=== PATIENT | female | born 1970 | race Caucasian/White ===

== ENCOUNTER 2017-03-25 17:45 | Emergency (ER) | payer BC ==
[2017-03-25 18:12] VITALS: BP 131/78
--- NOTE | 2017-03-25 18:15 | UC ---
Eye Complaint HPI - HPI Summary HPI Summary: 46 y/o female w/ PMHX of bipolar disorder presents tot the urgent care c/o bilateral eye irritation for the past 3 days after she apply an eye cream for her wrinkles. She thinks she has applied too much and now caused her an allergic reaction. She has redness w/ swelling and discrete hives on both eyelid that itches. Pt denies eye pain, visual disturbance, eye discharge. fever , SOB, chest pain, N/V/D. Pt has not other complains - History of Current Complaint Chief Complaint: UCGeneralIllness Stated Complaint: EYE ISSUE Time Seen by Provider: 03/25/17 18:13 Hx Obtained From: Patient Hx Last Menstrual Period: 02/23/17 ?: No Onset/Duration: Gradual Onset, Lasting Days, Still Present Timing: Days Severity Initially: Mild Severity Currently: Moderate Pain Intensity: 0 Pain Scale Used: 0-10 Numeric Location of Injury: Eye Lid (lower), Eye Lid (upper), Periorbital Aggravating Factor(s): Other - touch Alleviating Factor(s): Eye Drops Associated Signs And Symptoms: Positive: Swelling. Negative: Photophobia, Drainage (Clear), Drainage (Purulent), Vision Impairment Bilateral, Vision Impairment Right, Vision Impairment Left, Fever - Risk Factors Penetrating Injury Risk Factor: Negative Acute Glaucoma Risk Factors: Negative Optic Artery Occlusion Risk Factors: Negative - Allergies/Home Medications Allergies/Adverse Reactions: Allergies Allergy/AdvReac Type Severity Reaction Status Date / Time No Known Allergies Allergy Verified 03/25/17 18:04 Home Medications: Home Medications Cariprazine HCl [Vraylar] 3 mg PO 03/25/17 [History Confirmed 03/25/17] PMH/Surg Hx/FS Hx/Imm Hx Previously Healthy: Yes Psychological History: Bipolar Disorder - Surgical History Surgical History: Yes Surgery Procedure, Year, and Place: umbilical hernia repair, 20 YRS AGO. L foot , 2015 - Family History Known Family History: Positive: None - Pt denies - Social History Occupation: Employed Full-time Lives: With Family Alcohol Use: Rare Alcohol Amount: 1-2 PER MONTH Substance Use Type: None Smoking Status (MU): Never Smoked Tobacco Amount Used/How Often: PACK A WEEK When Did the Patient Quit Smoking/Using Tobacco: 2000 - Immunization History Most Recent Influenza Vaccination: 2016 Most Recent Tetanus Shot: utd Most Recent Pneumonia Vaccination: NEVER Review of Systems Constitutional: Negative Skin: Negative Eyes: Other - B/L eyelid and periorbital rash w/ swelling ENT: Negative Respiratory: Negative Cardiovascular: Negative Gastrointestinal: Negative Genitourinary: Negative Motor: Negative Neurovascular: Negative Musculoskeletal: Negative Neurological: Negative Psychological: Negative All Other Systems Reviewed And Are Negative: Yes Physical Exam Triage Information Reviewed: Yes Appearance: Well-Appearing, No Pain Distress, Well-Nourished, Thin Vital Signs: Initial Vital Signs Temp 99.2 F 03/25/17 18:06 Pulse 83 03/25/17 18:06 Resp 16 03/25/17 18:06 BP 131/78 03/25/17 18:06 Pulse Ox 99 03/25/17 18:06 Vital Signs Reviewed: Yes Eyes: Positive: Conjunctiva Clear - B/L PERRLA, EOMI, fundi grossly normal. B/ L eyelid swollen w/ periorbital erythematous eruption and small hives. w/ clear eye discharge. ENT Exam: Normal ENT: Positive: Normal ENT inspection, Hearing grossly normal, Pharynx normal, TMs normal Dental Exam: Normal Neck exam: Normal Neck: Positive: Supple, Nontender, No Lymphadenopathy Respiratory Exam: Normal Respiratory: Positive: Chest non-tender, Lungs clear, Normal breath sounds Cardiovascular Exam: Normal Cardiovascular: Positive: RRR, No Murmur, Pulses Normal, Brisk Capillary Refill Abdominal Exam: Normal Abdomen Description: Positive: Nontender, No Organomegaly, Soft. Negative: CVA Tenderness (R), CVA Tenderness (L) Bowel Sounds: Positive: Present Musculoskeletal Exam: Normal Musculoskeletal: Positive: Strength Intact, ROM Intact, No Edema Neurological Exam: Normal Psychological Exam: Normal Skin Exam: Normal Eye Complaint Course/Dx - Course Course Of Treatment: 46 y/o female w/ PMHX of bipolar disorder presents tot the urgent care c/o bilateral eye irritation for the past 3 days after she apply an eye cream for her wrinkles. She thinks she has applied too much and now caused her an allergic reaction. She has redness w/ swelling and discrete hives on both eyelid that itches. Pt denies eye pain, visual disturbance, eye discharge. fever, SOB, chest pain, N/V/D.HX obtained. Pt w/ posiible blepheritis and periorbital contact dermatitis. Pt RX Prednisone PO, Opcon-A ophtalmic drops and [id number] to alleviate symptoms. Pt advised to to stop using eye cream immediately. If symptoms do not improve or worsen to f/u with PCP or opthalmologist. Pt understood and agreed. - Differential Dx/Diagnosis Differential Diagnosis/HQI/PQRI: Conjunctivitis, Corneal Abrasion, Keratitis, Periorbital Cellulitis, Other - blepheritis, contact dermatitis Provider Diagnoses: 1- Bilateral eye contact dermatitis vs blepharitis Discharge - Discharge Plan Condition: Stable Disposition: HOME Prescriptions: Gentamicin-Prednisolone Acetat [Pred-G S.o.p] 1 oin OP TID #1 oin Naphazoline W/ Pheniramine [Opcon-A] 1 jose eduardo OP TID #1 jose eduardo predniSONE TAB* [Deltasone TAB*] 20 mg PO DAILY #11 tab Patient Education Materials: Blepharitis (ED), Contact Dermatitis (ED) Referrals: Roxann Wellington MD [Primary Care Provider] - If Needed Juan Mejía MD [Medical Doctor] - If Needed Additional Instructions: Please take medications as directed, Wash your eye w/ baby Luis Alfredo shampoo 2/ days. Avoid wearing make up. Stop applying the cream that irritated your eyes. if symptoms do not improve or worsen please f/u with your PCP or the glass cut off tender.
== END 2017-03-25 18:55 | disposition home or self-care (01) ==
LOC: UCEAST 17:45
DX: H57.8 Other specified disorders of eye and adnexa (principal); H02.849 Edema of unspecified eye, unspecified eyelid; R21 Rash and other nonspecific skin eruption; F31.9 Bipolar disorder, unspecified; Z87.891 Personal history of nicotine dependence
CPT/HCPCS: 99212; G0463

== ENCOUNTER 2019-02-04 19:53 | Emergency (ER) | payer BC ==
[2019-02-04 20:23] VITALS: BP 136/86
[2019-02-04] MEDS ORDERED: DOXYcycline CAP(*) 100 MG PO ONE (20:43)
--- NOTE | 2019-02-04 20:50 | UC ---
Skin Complaint HPI - HPI Summary HPI Summary: 48 yo female sustained a minor abrasion to left elbow 2 days ago Today worked out at gym with left resting on mat over past three hours increased pain/swelling and redness no fever/chills - History of Current Complaint Chief Complaint: UCUpperExtremity Time Seen by Provider: 02/04/19 20:29 Stated Complaint: SORE ON ELBOW Hx Obtained From: Patient Hx Last Menstrual Period: 2 weeks Onset/Duration: Sudden Onset, Lasting Hours Timing: Constant Onset Severity: Mild Current Severity: Moderate Pain Intensity: 6 Pain Scale Used: 0-10 Numeric Location: Discrete, Other - left elbow Character: Pain, Redness, Painful Aggravating Factor(s): Touch Alleviating Factor(s): Nothing Associated Signs & Symptoms: Positive: Tenderness. Negative: Nausea, Vomiting, Numbness, Thirst, Diaphoresis, Weakness, Pallor, Shivering, Difficulty Breathing , Fever, Chills, Cough, Wheezing, Chest Pain, Hoarseness, Throat Tightening, Rash, Abdominal Pain, Lightheadedness, Syncope, Drainage, Bruising, Red Streaks , Joint Swelling Related History: Trauma - Allergy/Home Medications Allergies/Adverse Reactions: Allergies Allergy/AdvReac Type Severity Reaction Status Date / Time No Known Allergies Allergy Verified 02/04/19 20:23 PMH/Surg Hx/FS Hx/Imm Hx Previously Healthy: Yes - Surgical History Surgical History: Yes Surgery Procedure, Year, and Place: umbilical hernia repair, 20 YRS AGO. L foot , 2015 - Family History Known Family History: Positive: None - Pt denies, Non-Contributory - Social History Alcohol Use: Rare Alcohol Amount: 1-2 PER MONTH Substance Use Type: None Smoking Status (MU): Never Smoked Tobacco Amount Used/How Often: PACK A WEEK When Did the Patient Quit Smoking/Using Tobacco: 2000 - Immunization History Most Recent Influenza Vaccination: 2016 Most Recent Tetanus Shot: utd Most Recent Pneumonia Vaccination: NEVER Review of Systems All Other Systems Reviewed And Are Negative: Yes Constitutional: Positive: Negative Skin: Positive: Negative Eyes: Positive: Negative ENT: Positive: Negative Respiratory: Positive: Negative Cardiovascular: Positive: Negative Gastrointestinal: Positive: Negative Genitourinary: Positive: Negative Motor: Positive: Negative Neurovascular: Positive: Negative Musculoskeletal: Positive: Arthralgia - left elbow Neurological: Positive: Negative Psychological: Positive: Negative Physical Exam Triage Information Reviewed: Yes Appearance: Well-Appearing, No Pain Distress, Well-Nourished Vital Signs: Initial Vital Signs Temp 99.8 F 02/04/19 20:17 Pulse 95 02/04/19 20:17 Resp 16 02/04/19 20:17 BP 136/86 02/04/19 20:17 Pulse Ox 98 02/04/19 20:17 Vital Signs Reviewed: Yes Eyes: Positive: Conjunctiva Clear ENT: Positive: Hearing grossly normal. Negative: Nasal congestion, Nasal drainage, Trismus, Muffled voice, Hoarse voice Neck: Positive: Supple Respiratory: Positive: Lungs clear, Normal breath sounds, No respiratory distress, No accessory muscle use Cardiovascular: Positive: RRR, No Murmur Musculoskeletal: Positive: ROM Intact, Other: - see image Neurological: Positive: Alert Psychological Exam: Normal Skin Exam: Other - see image Images Front/Back of Body, Lg (Sully): 1 - 3mmsuperficial abrasion with redness/induration overlying olecranon, no flutuance Course/Dx - Diagnoses Provider Diagnosis: Olecranon bursitis, left elbow Discharge - Sign-Out/Discharge Documenting (check all that apply): Patient Departure All imaging exams completed and their final reports reviewed: No Studies - Discharge Plan Condition: Stable Disposition: HOME Referrals: Roxann Wellington MD [Primary Care Provider] - - Billing Disposition and Condition Condition: STABLE Disposition: Home
== END 2019-02-04 21:02 | disposition home or self-care (01) ==
LOC: UCEAST 19:53
DX: M70.22 Olecranon bursitis, left elbow (principal)
CPT/HCPCS: 99212; A9270-GY; G0463

== ENCOUNTER 2019-02-05 12:21 | Emergency (ER) | payer BC ==
[2019-02-05 13:08] LABS: ABS Lymphocytes 3.3 10^3/ul (1.0-4.8); ABS Monocytes 1.2 10^3/ul (0-0.8); ABS Neutrophils 10.9 10^3/ul (1.5-7.7); Eosinophil % 0.1 %; Hematocrit 38 % (35-47); Hemoglobin 12.9 g/dL (12.0-16.0); Lymphocyte % 21.4 %; Mean Corpuscular HGB Conc 34 g/dL (31-36); Mean Corpuscular Hemoglobin 31 pg (27-31); Mean Corpuscular Volume 91 fL (80-97); Mean Platelet Volume 7.1 fL (7.4-10.4); Platelet Count 370 10^3/uL (150-450); Red Blood Count 4.22 10^6 /uL (3.70-4.87); Red Cell Distribution Width 12 % (10-15); White Blood Count 15.5 10^3/uL (3.5-10.8)
[2019-02-05 13:31] LABS: Albumin 4.1 g/dL (3.2-5.2); Albumin/Globulin Ratio 1.4 (1-3); BUN/Creatinine Ratio 15.6 (8-20); C Reactive Protein 30.52 mg/L (<8.01); Calcium 9.4 mg/dL (8.6-10.3); EGFR African American 97.7 (>60); EGFR Non-African American 80.7 (>60); Globulin 2.9 g/dL (2-4); Potassium 4.4 mmol/L (3.5-5.0); Total Bilirubin 0.5 mg/dL (0.2-1.0)
[2019-02-05] MEDS ORDERED: Lidocaine 1%** 5 ML VIAL INJ ONE (13:42)
[2019-02-05] MEDS ORDERED: cefTRIAXone(*) 1 GM in NS 0.9% 50 ML* 50 ML IVPB ONE (14:19)
[2019-02-05] MEDS ORDERED: Ibuprofen TAB* 800 MG PO ONE (14:28)
[2019-02-05 15:45] VITALS: BP 121/69
--- NOTE | 2019-02-05 17:59 | ED ---
Upper Extremity Pain - HPI Summary HPI Summary: Patient is a 48-year-old female presenting to the emergency department for worsening pain and redness to left elbow 2 days. Patient states she somehow obtain a small abrasion to her left elbow several days ago. Patient states she was at the gym yesterday and was lying on an exercise mat. She then noticed in the evening that her left elbow was becoming painful, swollen and red. Patient otherwise denies any falls or direct trauma to elbow. She notes fever and chills. [facility] on doxy[facility]ine. She 's taken 2 doses so far. Patient presents to the ER today because redness, swelling and pain has increased. She's been taking ibuprofen with some improvement. She's not a past medical history. Symptoms are mild in severity. Moving and touching left elbow makes symptoms worse. Nothing makes symptoms better. - History of Current Complaint Chief Complaint: EDRashSkinAbscess Stated Complaint: LEFT ELBOW BURSITIS PER PT Time Seen by Provider: 02/05/19 12:35 Hx Obtained From: Patient Hx Last Menstrual Period: 2 weeks - Allergies/Home Medications Allergies/Adverse Reactions: Allergies Allergy/AdvReac Type Severity Reaction Status Date / Time No Known Allergies Allergy Verified 02/04/19 20:23 PMH/Surg Hx/FS Hx/Imm Hx Previously Healthy: Yes Endocrine/Hematology History: Denies: Hx Diabetes Cardiovascular History: Reports: Other Cardiovascular Problems/Disorders - HEART MURMUR Denies: Hx Hypertension, Hx Pacemaker/ICD Respiratory History: Denies: Hx Asthma, Other Respiratory Problems/Disorders GI History: Denies: Other GI Disorders History: Denies: Hx Renal Disease Musculoskeletal History: Denies: Other Musculoskeletal History Sensory History: Denies: Hx Contacts or Glasses, Hx Hearing Aid Opthamlomology History: Denies: Hx Contacts or Glasses Neurological History: Denies: Other Neuro Impairments/Disorders Psychiatric History: Reports: Hx Depression - ON MEDS, Hx Panic Disorder, Other Psychiatric Issues/Disorders - CLAUSTROBPHOBIA - Cancer History Hx Chemotherapy: No Hx Radiation Therapy: No - Surgical History Surgery Procedure, Year, and Place: umbilical hernia repair, 20 YRS AGO. L foot , 2015 Hx Anesthesia Reactions: No Infectious Disease History: No Infectious Disease History: Denies: Hx Shingles, History Other Infectious Disease, Traveled Outside the [place] in Last 30 Days - Family History Known Family History: Positive: None - Pt denies, Non-Contributory - Social History Occupation: Employed Full-time Lives: With Family Alcohol Use: None Alcohol Amount: 1-2 PER MONTH Hx Substance Use: No Substance Use Type: Reports: None Hx Tobacco Use: No Smoking Status (MU): Never Smoked Tobacco Amount Used/How Often: PACK A WEEK Review of Systems Positive: Fever, Chills Gastrointestinal: Negative Negative: Vomiting, Nausea Positive: Other - left elbow pain and redness. Positive: Other - abrasion to left elbow. Neurological: Negative Negative: Weakness, Paresthesia, Numbness All Other Systems Reviewed And Are Negative: Yes Physical Exam Triage Information Reviewed: Yes Vital Signs On Initial Exam: Initial Vitals Temp Pulse Resp BP Pulse Ox 99.4 F 108 18 161/94 100 02/05/19 12:23 02/05/19 12:23 02/05/19 12:23 02/05/19 12:23 02/05/19 12:23 Vital Signs Reviewed: Yes Appearance: Positive: Well-Appearing - Pt. sitting on bed in NAD. Skin: Positive: Warm, Dry Head/Face: Positive: Normal Head/Face Inspection Eyes: Positive: Normal, EOMI Neck: Positive: Supple Musculoskeletal: Positive: Other - Small scab noted over left lateral elbow with surrounding erythema and edema. Slight decrease in ROM with flexion and extension. Neurological: Positive: Normal, CN Intact II-III Psychiatric: Positive: Affect/Mood Appropriate Diagnostics - Vital Signs Vital Signs Temp Pulse Resp BP Pulse Ox 02/05/19 15:23 99.0 F 98 16 121/69 97 02/05/19 12:23 99.4 F 108 18 161/94 100 - Laboratory Lab Results: Lab Results 02/05/19 02/05/19 Range/Units 12:57 12:57 WBC 15.5 H (3.5-10.8) 10^3/uL RBC 4.22 (3.70-4.87) 10^6 /uL Hgb 12.9 (12.0-16.0) g/dL Hct 38 (35-47) % MCV 91 (80-97) fL MCH 31 (27-31) pg MCHC 34 (31-36) g/dL RDW 12 (10-15) % Plt Count 370 (150-450) 10^3/uL MPV 7.1 L (7.4-10.4) fL Neut % (Auto) 70.4 % Lymph % (Auto) 21.4 % Trigg % (Auto) 7.9 % Eos % (Auto) 0.1 % Baso % (Auto) 0.2 % Absolute Neuts (auto) 10.9 H (1.5-7.7) 10^3/ul Absolute Lymphs (auto) 3.3 (1.0-4.8) 10^3/ul Absolute Monos (auto) 1.2 H (0-0.8) 10^3/ul Absolute Eos (auto) 0.0 (0-0.6) 10^3/ul Absolute Basos (auto) 0.0 (0-0.2) 10^3/ul Absolute Nucleated RBC 0.0 10^3/ul Nucleated RBC % 0.0 Sodium 134 L (135-145) mmol/L Potassium 4.4 (3.5-5.0) mmol/L Chloride 101 (101-111) mmol/L Carbon Dioxide 27 (22-32) mmol/L Anion Gap 6 (2-11) mmol/L BUN 12 (6-24) mg/dL Creatinine 0.77 (0.51-0.95) mg/dL Est GFR ( Amer) 97.7 (>60) Est GFR (Non-Af Amer) 80.7 (>60) BUN/Creatinine Ratio 15.6 (8-20) Glucose 107 H (70-100) mg/dL Calcium 9.4 (8.6-10.3) mg/dL Total Bilirubin 0.50 (0.2-1.0) mg/dL AST 17 (13-39) U/L ALT 17 (7-52) U/L Alkaline Phosphatase 73 (34-104) U/L C-Reactive Protein 30.52 H (<8.01) mg/L Total Protein 7.0 (6.4-8.9) g/dL Albumin 4.1 (3.2-5.2) g/dL Globulin 2.9 (2-4) g/dL Albumin/Globulin Ratio 1.4 (1-3) Result Diagrams: 02/05/19 12:57 02/05/19 12:57 Lab Statement: Any lab studies that have been ordered have been reviewed, and results considered in the medical decision making process. Course/Dx - Course Course Of Treatment: Pt. presenting with redness, swelling and pain to left elbow. Low grade fever. Pt. has pain with ROM but is able to fully extend and flex. Basic labs obtained. CBC shows WBC of 15.5. Pt. examined by Dr. Urrutia as well who examined area with ultrasound. No fluid collection seen. Will treat as a cellulitis. Pt. given a dose of IV rocephin. Will have her continue doxycycline. Pt. to f.u with ortho or PCP on Friday for recheck. Will return to ER over the weekend for increased redness, swelling, pain or if concerned. Pt. would like to continue motrin for pain and swelling. Pt. understands and agrees with plan. - Diagnoses Differential Diagnosis/HQI/PQRI: Positive: Bursitis, Hematoma, Septic Arthritis Provider Diagnoses: Cellulitis Discharge - Sign-Out/Discharge Documenting (check all that apply): Patient Departure Patient Received Moderate/Deep Sedation with Procedure: No - Discharge Plan Condition: Good Disposition: HOME Patient Education Materials: Cellulitis (ED) Referrals: Roxann Wellington MD [Primary Care Provider] - Ronnell Lomax MD [Medical Doctor] - Additional Instructions: Follow up with PCP or in the orthopedic office in 3 days Continue antibiotic as directed Ice and elevate intermittently Ibuprofen 600-800mg every 8 hours x 1 week for pain Return to ER for increased pain, redness, high fever, inability to move elbow or if concerned - Billing Disposition and Condition Condition: GOOD Disposition: Home
[2019-02-07 00:04] LABS: B garinii/B afzelii PCR Negative (Negative); B mayonii PCR Negative (Negative)
== END 2019-02-05 15:23 | disposition home or self-care (01) ==
LOC: ED 12:21
DX: L03.114 Cellulitis of left upper limb (principal)
CPT/HCPCS: 36415; 80053; 85025; 86140; 87476; 87798; 96365; 96372; 99283; A9270-GY; J0696

== ENCOUNTER 2019-02-07 16:03 | Observation (INO) | payer BC ==
[2019-02-07 18:14] LABS: ABS Basophils 0.1 10^3/ul (0-0.2); ABS Eosinophils 0.1 10^3/ul (0-0.6); ABS Lymphocytes 4.5 10^3/ul (1.0-4.8); ABS Monocytes 1.4 10^3/ul (0-0.8); ABS Neutrophils 11.6 10^3/ul (1.5-7.7); Eosinophil % 0.3 %; Hematocrit 39 % (35-47); Lymphocyte % 25.6 %; Mean Corpuscular HGB Conc 33 g/dL (31-36); Mean Corpuscular Hemoglobin 31 pg (27-31); Mean Corpuscular Volume 93 fL (80-97); Mean Platelet Volume 7.3 fL (7.4-10.4); Platelet Count 389 10^3/uL (150-450); Red Blood Count 4.22 10^6 /uL (3.70-4.87); Red Cell Distribution Width 13 % (10-15); White Blood Count 17.6 10^3/uL (3.5-10.8)
[2019-02-07 18:29] LABS: Albumin 4.1 g/dL (3.2-5.2); Albumin/Globulin Ratio 1.3 (1-3); BUN/Creatinine Ratio 13.5 (8-20); C Reactive Protein 146.38 mg/L (<8.01); Calcium 9.8 mg/dL (8.6-10.3); EGFR African American 102.2 (>60); EGFR Non-African American 84.5 (>60); Globulin 3.2 g/dL (2-4); Potassium 4.1 mmol/L (3.5-5.0); Total Bilirubin 0.3 mg/dL (0.2-1.0); Total Protein 7.3 g/dL (6.4-8.9)
[2019-02-07] MEDS ORDERED: Vancomycin(*) 1,000 MG in NS 0.9% 250 ML* 250 ML IVPB ONE (19:33)
[2019-02-07] MEDS ORDERED: Piperacillin/Tazobac ADVAN(*) 3.375 GM in NS 0.9% 100 ML* 100 ML IVPB ONE (19:33)
[2019-02-07] MEDS ORDERED: NS 0.9% 1000 ML** 1,000 ML IV ONE (19:33)
[2019-02-07] MEDS ORDERED: Ketorolac INJ* 30 MG/ML 1 ML VIAL IV PUSH ONE (19:34)
[2019-02-07] MEDS ORDERED: Propranolol TAB* 20 MG PO PRN (20:22)
[2019-02-07] MEDS ORDERED: oxyCODONE/Acetamin 5/325 MG* TAB PO PRN (20:26)
[2019-02-07] MEDS ORDERED: lamoTRIgine TAB(*) 100 MG PO SCH (21:00)
[2019-02-07] MEDS ORDERED: Vancomycin per Pharmacy* NOTE FOLLOW UP SCH (21:00)
--- NOTE | 2019-02-07 22:45 | HP ---
CC: Dr. Roxann Wellington * [facility] MEDICINE HISTORY AND PHYSICAL: DATE OF ADMISSION: 02/07/19 PRIMARY CARE PHYSICIAN: Dr. Roxann Wellington. ATTENDING PHYSICIAN: Dr. Leatha Obrien * (dictation provided by Aditi Moscoso NP ). CHIEF COMPLAINT: Worsening erythema and pain to left elbow. HISTORY OF PRESENT ILLNESS: Ms. Rain is a 48-year-old female with a past medical history of bipolar disorder, who presents to the hospital today with concern for worsening erythema and pain to her left elbow. Ms. Rain states she had nicked her left elbow some time earlier this week and noticed the start of a small scab on her left elbow. There was no pain or erythema associated. She went to the gym where she worked on a mat and on the way home she noted that the elbow now appeared somewhat red and painful to touch. In the ensuing few hours after that the area became swollen and, therefore, she went to the [facility] for evaluation. At [facility], they started doxycycline. The patient took 2 doses of doxycycline, but noticed worsening erythema and pain and presented to the emergency room on 02/05/19. She was given Rocephin and it was suspected that she just needed more time on doxycycline. Dr. Urrutia examined the area with ultrasound in the emergency room and did not see any fluid collection. The patient states, since returning home on Friday, that the area has felt better in some ways in terms of decreased pain and good range of motion. However, the erythema has significantly increased and, therefore, she returned to the emergency room today. She denies any fever at home. She has had no nausea, vomiting, diarrhea. She is otherwise well. In the emergency room, Ms. Rain had labs, which showed a white blood cell count of 17.6, that had been 15.5 on 02/05/19. She had a CRP of 146.38. PAST MEDICAL HISTORY: 1. Bipolar disorder. 2. History of umbilical hernia. 3. History of foot surgery in 2016, on the left. OUTPATIENT MEDICATIONS: 1. Quetiapine 12.5 mg p.o. at bedtime. 2. Lamotrigine 400 mg p.o. q.p.m. 3. Spironolactone 200 mg p.o. daily. 4. Propranolol 20 mg p.o. daily p.r.n. 5. Lorazepam 0.5 mg p.o. b.i.d. p.r.n. 6. Adderall 30 mg p.o. q.a.m. 7. Doxycycline 100 mg p.o. b.i.d. 8. Vraylar 3 mg p.o. daily. 9. Bupropion XL 450 mg p.o. q.p.m. 10. Oral contraceptive pills daily. ALLERGIES: No known drug allergies. FAMILY HISTORY: The patient reports her mother is alive and well. She does not know her father. SOCIAL HISTORY: No reported alcohol, tobacco or drug use. The patient states that her will be the healthcare proxy. REVIEW OF SYSTEMS: A 14-point review of systems was completed with Ms. Rain and all those not mentioned above were negative. PHYSICAL EXAMINATION GENERAL: Ms. Rain is lying in bed. She is in no acute distress. VITAL SIGNS: Temperature 99.3, pulse rate 81, respiratory rate 16, O2 saturation 96% on room air, blood pressure 137/92. NEURO: She is alert. She is oriented x3. She moves all extremities equally. There is no facial asymmetry or focal weakness. Extraocular movements are intact. LUNGS: Clear to auscultation bilaterally, with no accessory muscle use and good aeration. HEART: S1 and S2. No murmur, rub or gallop, and regular. ABDOMEN: Soft, nontender, with bowel sounds present positive x4. EXTREMITIES: Positive for erythema and some mild edema to the left elbow, it extends 4 to 5 inches beyond the line of demarcation noted on Friday. We will have staff here in the ED make a second line of demarcation. There is a very small dried scab to the olecranon area. No drainage. DIAGNOSTIC STUDIES/LAB DATA: Sodium 134, potassium 4.1, chloride 102, serum bicarbonate 24, BUN 10, creatinine 0.74, glucose 125. CRP 146.38. WBC 17.6, hemoglobin 13.0, hematocrit 39, platelet count 389. ASSESSMENT: Ms. Rain is a 48-year-old female with bipolar disorder, who presents to the hospital today with concern for worsening erythema and pain to her left elbow despite appropriate outpatient antibiotics. Plans are for observation in the hospital for the followin. Left elbow cellulitis: The patient has continued worsening erythema despite appropriate treatment with doxycycline. Plan to switch over to intravenous broad- spectrum antibiotics with vancomycin and cefepime. She does have good range of motion, so I have little suspicion that this is affecting her joint at this time or that she has septic arthritis. I do note that Dr. Patel attempted to aspirate the elbow in the ED and was unable to aspirate any fluid. She does have a small area of fluctuance in the forearm and, therefore, we will obtain an official ultrasound. The patient does not meet sepsis criteria at this time, although she has an elevated CRP and white blood cell count. Her vitals are stable. 2. Bipolar disorder: Continue home medications. 3. DVT prophylaxis: Heparin subcu. 4. Code status: Full code. TIME SPENT: Approximately 60 minutes were spent on the admission of this patient, more than half of that time was spent with the patient at the bedside, reviewing the events leading up to this hospitalization, performing the physical examination, and reviewing my plan of care. ADITI MOSCOSO NP [id number]/[facility] #: [id number] [place]
--- NOTE | 2019-02-07 23:30 | ED ---
Skin Complaint - HPI Summary HPI Summary: Patient is a 48 y/o F presenting to ED with complaints of cellulitis at her left arm. She states that she was seen at urgent care three days ago. Patient was prescribed doxycycline and discharged to home. That evening, she experienced a worsening of Sx, stating that the redness at her elbow spread, estimating that the area doubled in size. She came to [facility] the following day. Patient reports that she had US of arm done, was given IV ceftriaxone, and discharged to home with instructions to continue taking doxycycline. However, Sx have persisted and worsened, which led the patient to return to ED today. She reports a slight fever but denies discharge from the area. PSHx of umbilical hernia and left foot surgery. She denies any medical history otherwise. On triage, pain is rated 2/10, nothing is noted to aggravate/ alleviate Sx, and it is noted that the patient took 400 mg ibuprofen at 1400 today. Home medications and allergies are reviewed. - History of Current Complaint Chief Complaint: EDRashSkinAbscess Time Seen by Provider: 02/07/19 19:19 Stated Complaint: CELLULITUS PER PT Hx Obtained From: Patient Hx Last Menstrual Period: 2 weeks Onset/Duration: Started Days Ago - onset three days ago, Still Present, Worse Since Skin Exposure Onset/Duration: Days Ago - onset three days ago Timing: Constant, Lasting Days - onset three days ago Current Severity: Mild Pain Intensity: 2 Pain Scale Used: 0-10 Numeric - 2/10 Skin Location: Arm - left Character: Swelling, Pain, Redness Aggravating Symptom(s): Nothing Alleviating Symptom(s): Nothing Associated Signs & Symptoms: Fever - Additional Pertinent History Primary Care Physician: [id number] - Allergy/Home Medications Allergies/Adverse Reactions: Allergies Allergy/AdvReac Type Severity Reaction Status Date / Time No Known Allergies Allergy Verified 02/07/19 16:27 Home Medications: Home Medications QUEtiapine TAB* [Seroquel 25 MG TAB*] 12.5 mg PO BEDTIME 02/07/19 [History Confirmed 02/07/19] PMH/Surg Hx/FS Hx/Imm Hx Endocrine/Hematology History: Denies: Hx Diabetes Cardiovascular History: Reports: Other Cardiovascular Problems/Disorders - HEART MURMUR Denies: Hx Hypertension, Hx Pacemaker/ICD Respiratory History: Denies: Hx Asthma, Other Respiratory Problems/Disorders GI History: Denies: Other GI Disorders History: Denies: Hx Renal Disease Musculoskeletal History: Denies: Other Musculoskeletal History Sensory History: Reports: Hx Contacts or Glasses Denies: Hx Hearing Aid Opthamlomology History: Reports: Hx Contacts or Glasses Neurological History: Denies: Other Neuro Impairments/Disorders Psychiatric History: Reports: Hx Depression - ON MEDS, Hx Panic Disorder, Other Psychiatric Issues/Disorders - CLAUSTROBPHOBIA - Cancer History Hx Chemotherapy: No Hx Radiation Therapy: No - Surgical History Surgery Procedure, Year, and Place: umbilical hernia repair, 20 YRS AGO. L foot , 2016 Hx Anesthesia Reactions: No Infectious Disease History: No Infectious Disease History: Denies: Hx Shingles, History Other Infectious Disease, Traveled Outside the [place] in Last 30 Days - Family History Known Family History: Positive: Cardiac Disease, Diabetes - Social History Alcohol Use: Rare Alcohol Amount: 1-2 PER MONTH Hx Substance Use: No Substance Use Type: Reports: None Hx Tobacco Use: No Smoking Status (MU): Never Smoked Tobacco Amount Used/How Often: PACK A WEEK Review of Systems Positive: Fever Skin: Other - positive - cellulitis of left arm, no discharge All Other Systems Reviewed And Are Negative: Yes Physical Exam - Summary Physical Exam Summary: VITAL SIGNS: Reviewed. GENERAL: Patient is a well-developed and nourished female who is lying comfortable in the stretcher. Patient is not in any acute respiratory distress. HEAD AND FACE: No signs of trauma. No ecchymosis, hematomas or skull depressions. No sinus tenderness. EYES: PERRLA, EOMI x 2, No injected conjunctiva, no nystagmus. EARS: Hearing grossly intact. Ear canals and tympanic membranes are within normal limits. MOUTH: Oropharynx within normal limits. NECK: Supple, trachea is midline, no adenopathy, no JVD, no carotid bruit, no c- spine tenderness, neck with full ROM CHEST: Symmetric, no tenderness at palpation LUNGS: Clear to auscultation bilaterally. No wheezing or crackles. CVS: Regular rate and rhythm, S1 and S2 present, no murmurs or gallops appreciated. ABDOMEN: Soft, non-tender. No signs of distention. No rebound no guarding, and no masses palpated. Bowel sounds are normal. EXTREMITIES: FROM in all major joints, no edema, no cyanosis or clubbing. NEURO: Alert and oriented x 3. No acute neurological deficits. Speech is normal and follows commands. SKIN: Dry and warm; tenderness and fluctuance at left elbow with redness, tenderness, and swelling over upper forearm and lower arm. Triage Information Reviewed: Yes Vital Signs On Initial Exam: Initial Vitals Temp Pulse Resp BP Pulse Ox 98.1 F 87 16 115/88 100 02/07/19 16:23 02/07/19 16:23 02/07/19 16:23 02/07/19 16:23 02/07/19 16:23 Vital Signs Reviewed: Yes Diagnostics - Vital Signs Vital Signs Temp Pulse Resp BP Pulse Ox 02/07/19 22:08 20 02/07/19 22:04 98.4 F 79 20 135/78 99 02/07/19 21:31 98.2 F 72 16 127/84 95 02/07/19 21:08 99.6 F 78 16 122/79 98 02/07/19 18:04 99.3 F 81 16 137/90 96 02/07/19 16:23 98.1 F 87 16 115/88 100 - Laboratory Lab Results: Lab Results 02/07/19 02/07/19 02/07/19 Range/Units 18:01 18:01 18:01 WBC 17.6 H (3.5-10.8) 10^3/uL RBC 4.22 (3.70-4.87) 10^6 /uL Hgb 13.0 (12.0-16.0) g/dL Hct 39 (35-47) % MCV 93 (80-97) fL MCH 31 (27-31) pg MCHC 33 (31-36) g/dL RDW 13 (10-15) % Plt Count 389 (150-450) 10^3/uL MPV 7.3 L (7.4-10.4) fL Neut % (Auto) 65.8 % Lymph % (Auto) 25.6 % Ida % (Auto) 8.0 % Eos % (Auto) 0.3 % Baso % (Auto) 0.3 % Absolute Neuts (auto) 11.6 H (1.5-7.7) 10^3/ul Absolute Lymphs (auto) 4.5 (1.0-4.8) 10^3/ul Absolute Monos (auto) 1.4 H (0-0.8) 10^3/ul Absolute Eos (auto) 0.1 (0-0.6) 10^3/ul Absolute Basos (auto) 0.1 (0-0.2) 10^3/ul Absolute Nucleated RBC 0.0 10^3/ul Nucleated RBC % 0.0 Sodium 134 L (135-145) mmol/L Potassium 4.1 (3.5-5.0) mmol/L Chloride 102 (101-111) mmol/L Carbon Dioxide 24 (22-32) mmol/L Anion Gap 8 (2-11) mmol/L BUN 10 (6-24) mg/dL Creatinine 0.74 (0.51-0.95) mg/dL Est GFR ( Amer) 102.2 (>60) Est GFR (Non-Af Amer) 84.5 (>60) BUN/Creatinine Ratio 13.5 (8-20) Glucose 125 H (70-100) mg/dL Lactic Acid 1.3 (0.5-2.0) mmol/L Calcium 9.8 (8.6-10.3) mg/dL Total Bilirubin 0.30 (0.2-1.0) mg/dL AST 15 (13-39) U/L ALT 15 (7-52) U/L Alkaline Phosphatase 69 (34-104) U/L C-Reactive Protein 146.38 H (<8.01) mg/L Total Protein 7.3 (6.4-8.9) g/dL Albumin 4.1 (3.2-5.2) g/dL Globulin 3.2 (2-4) g/dL Albumin/Globulin Ratio 1.3 (1-3) Result Diagrams: 02/07/19 18:01 02/07/19 18:01 Lab Statement: Any lab studies that have been ordered have been reviewed, and results considered in the medical decision making process. Re-Evaluation - Re-Evaluation First Eval Re-Evaluation Time: 20:00 Comment: Left elbow aspiration yielded no pus or fluid. Admission was discussed , patient is agreeable with admission. Course/Dx - Course Course Of Treatment: Patient is a 48 y/o F presenting to ED with complaints of cellulitis at her left arm. She states that she was seen at urgent care three days ago. Patient was prescribed doxycycline and discharged to home. That evening, she experienced a worsening of Sx, stating that the redness at her elbow spread, estimating that the area doubled in size. She came to [facility] the following day. Patient reports that she had US of arm done, was given IV ceftriaxone, and discharged to home with instructions to continue taking doxycycline. However, Sx have persisted and worsened, which led the patient to return to ED today. She reports a slight fever but denies discharge from the area. She denies any medical history. It is noted that the patient took 400 mg ibuprofen at 1400 today. On physical exam, tenderness and fluctuance at left elbow with redness, tenderness, and swelling over upper forearm and lower arm. Labs showed WBC 17.6, MPV 7.3, absolute neuts 11.6, absolute monos 1.4, sodium 134, glucose 125, lactic acid 1.3, CRP 146.38. During ED course, patient received vancomycin 1000 mg in sodium chloride, 250 mls @ 166/667 mls/hr IVPB, fluids, piperacillin sod/tazobactam sod 3.375 gm, 100 mls @ 200 mls/hr IVPB, toradol 15 IV PUSH. 1951 - Patient's case was discussed with Dr. Obrien, Dr. Obrien accepts the patient for admission. Left elbow aspiration yielded no pus or fluid. Admission was discussed, patient is agreeable with admission. - Diagnoses Provider Diagnoses: Left arm cellulitis - Physician Notifications Discussed Care Of Patient With: Leatha Obrien Time Discussed With Above Provider: 19:52 Instructed by Provider To: Other - 1951 - Patient's case was discussed with Dr. Obrien, Dr. Obrien accepts the patient for admission. Discharge - Sign-Out/Discharge Documenting (check all that apply): Patient Departure - admit All imaging exams completed and their final reports reviewed: No Studies Patient Received Moderate/Deep Sedation with Procedure: No - Discharge Plan Condition: Good Disposition: ADMITTED TO [facility] - Attestation Statements Document Initiated by Scribe: Yes Documenting Scribe: ISABELA RAMIREZ Provider For Whom oJse Francisco is Documenting (Include Credential): ASHKAN REECE MD Scribe Attestation: ISABELA Jc, scribed for ASHKAN REECE MD on 02/07/19 at 2352. Status of Scribe Document: Ready
[2019-02-07] MEDS: LORazepam TAB(*) 0.5 MG PO PRN (23:35)
[2019-02-07] MEDS: BuPROPion XL* 150 MG TAB.XL PO SCH (23:36)
[2019-02-07] MEDS: Heparin VIAL(*) 5000 UNITS/ML VIAL (FIVE THOUSAND) SUBCUT SCH (23:38)
[2019-02-07] MEDS: QUEtiapine TAB* 25 MG PO SCH (23:38)
[2019-02-08] MEDS: Acetaminophen TAB* 325 MG PO PRN (05:56)
[2019-02-08] MEDS: Heparin VIAL(*) 5000 UNITS/ML VIAL (FIVE THOUSAND) SUBCUT SCH ×3 (05:57→21:14)
[2019-02-08 06:53] LABS: ABS Eosinophils 0.1 10^3/ul (0-0.6); ABS Lymphocytes 4.6 10^3/ul (1.0-4.8); ABS Neutrophils 7.3 10^3/ul (1.5-7.7); Eosinophil % 0.5 %; Hematocrit 36 % (35-47); Hemoglobin 12.3 g/dL (12.0-16.0); Lymphocyte % 35.5 %; Mean Corpuscular HGB Conc 34 g/dL (31-36); Mean Corpuscular Hemoglobin 31 pg (27-31); Mean Corpuscular Volume 92 fL (80-97); Mean Platelet Volume 7.6 fL (7.4-10.4); Nucleated Red Blood Cells % 0.1; Platelet Count 373 10^3/uL (150-450); Red Blood Count 3.91 10^6 /uL (3.70-4.87); Red Cell Distribution Width 13 % (10-15); White Blood Count 13.1 10^3/uL (3.5-10.8)
[2019-02-08] MEDS: CARIPRAZINE 3 MG PO SCH (07:30)
[2019-02-08] MEDS: Cefepime 1 GM in Dextrose(*) 1 GM/50 ML BAG IV SCH ×2 (08:41→20:45)
[2019-02-08] MEDS: Spironolactone TAB* 25 MG PO SCH (08:41)
[2019-02-08] MEDS: Amphetamine/Dextroamph ER(NF) 10 MG CAP.ER PO SCH (08:41)
[2019-02-08] MEDS: Vancomycin(*) 1,000 MG in NS 0.9% 250 ML* 250 ML IVPB SCH ×2 (09:52→22:24)
--- NOTE | 2019-02-08 13:45 | PN ---
Subjective Date of Service: 02/08/19 Interval History: Patient states LT elbow is improving. Still has pain w/ flexion. No fever. Family History: Unchanged from Admission Social History: Unchanged from Admission Past Medical History: Unchanged from Admission Objective Active Medications: Acetaminophen (Tylenol Tab*) 650 mg PO Q6H PRN PRN Reason: PAIN Last Admin: 02/08/19 05:56 Dose: 650 mg Amphetamine/Dextroamphetamine (Adderal Xr (Nf)) 30 mg PO QAM [facility] Last Admin: 02/08/19 08:41 Dose: 30 mg Bupropion HCl (Wellbutrin Xl *) 450 mg PO BEDTIME [facility] Last Admin: 02/07/19 23:36 Dose: 450 mg Cariprazine (Vraylar (Nf)) 3 mg PO DAILY [facility] Last Admin: 02/08/19 07:30 Dose: Not Given Heparin Sodium (Porcine) (Heparin Vial(*)) 5,000 units SUBCUT Q8HR [facility] Last Admin: 02/08/19 05:57 Dose: Not Given Cefepime HCl (Maxipime 1 Gm In Dextrose Duplex (*)) 1 gm in 50 mls @ 100 mls/ hr IV Q12H [facility] Last Admin: 02/08/19 08:41 Dose: 100 mls/hr Vancomycin HCl 1,000 mg/ (Sodium Chloride) 250 mls @ 166.667 mls/hr IVPB Q12H [facility] Last Admin: 02/08/19 09:52 Dose: 166.667 mls/hr Lamotrigine (Lamictal Tab(*)) 400 mg PO BEDTIME [facility] Last Admin: 02/07/19 23:37 Dose: 400 mg Lorazepam (Ativan Tab(*)) 0.5 mg PO BID PRN PRN Reason: ANXIETY Last Admin: 02/07/19 23:35 Dose: 0.5 mg Oxycodone/Acetaminophen (Percocet 5/325 Tab*) 1 tab PO Q4H PRN PRN Reason: PAIN Propranolol HCl (Inderal Tab*) 20 mg PO DAILY PRN PRN Reason: ANXIETY Quetiapine Fumarate (Seroquel Tab*) 12.5 mg PO BEDTIME [facility] Last Admin: 02/07/19 23:38 Dose: Not Given Spironolactone (Aldactone Tab*) 200 mg PO DAILY [facility] Last Admin: 02/08/19 08:41 Dose: Not Given Vital Signs - 8 hr 02/08/19 07:40 Temperature 36.8 C Pulse Rate 91 Respiratory 18 Rate Blood Pressure 120/70 (mmHg) O2 Sat by Pulse 100 Oximetry Oxygen Devices in Use Now: None Appearance: alert, no distress Eyes: No Scleral Icterus Ears/Nose/Mouth/Throat: NL Teeth, Lips, Gums Neck: NL Appearance and Movements; NL JVP Respiratory: Symmetrical Chest Expansion and Respiratory Effort, Clear to Auscultation Cardiovascular: NL Sounds; No Murmurs; No JVD, RRR Abdominal: NL Sounds; No Tenderness; No Distention Extremities: - - LT elbow w/ erythema from olecranon and distal near to wrist, tender at olecranon, no fluctuance. Neurological: Alert and Oriented x 3 Lines/Tubes/Other Access: Clean, Dry and Intact Peripheral IV Nutrition: Taking PO's Result Diagrams: 02/08/19 05:41 02/07/19 18:01 Diagnostic Imaging: U/S LUE: no abscess Assess/Plan/Problems-Billing Assessment: 48 year old with LT elbow cellulitis, failed to respond to outpatient doxycycline - Patient Problems (1) Cellulitis of left elbow Current Visit: Yes Status: Acute Priority: High Code(s): L03.114 - CELLULITIS OF LEFT UPPER LIMB SNOMED Code(s): 272642389 Comment: -Clinically improving, but likely due to IV vanco and cefipime, which are not available as outpatient. -Will observe for 24 hours more, consider discharge on oral Ceftin at that point. (2) Bipolar 1 disorder Current Visit: Yes Status: Acute Priority: Medium Code(s): F31.9 - BIPOLAR DISORDER, UNSPECIFIED SNOMED Code(s): 921467506 Comment: -Continue atypicals, lamotrigine, stimulants (3) DVT prophylaxis Current Visit: Yes Status: Acute Priority: Low Code(s): Z29.9 - ENCOUNTER FOR PROPHYLACTIC MEASURES, UNSPECIFIED SNOMED Code(s): 860066475 Comment: -Low risk, ambulatory Status and Disposition: likely discharge tomorrow if clinically improving
[2019-02-08] MEDS ORDERED: LAMICTAL 100 MG PO SCH (21:00)
[2019-02-08] MEDS: QUEtiapine TAB* 25 MG PO SCH (21:20)
[2019-02-08] MEDS: BuPROPion XL* 150 MG TAB.XL PO SCH (21:25)
[2019-02-08] MEDS: LORazepam TAB(*) 0.5 MG PO PRN (21:25)
[2019-02-09 05:54] VITALS: BP 130/82
[2019-02-09] MEDS: Heparin VIAL(*) 5000 UNITS/ML VIAL (FIVE THOUSAND) SUBCUT SCH (06:09)
[2019-02-09] MEDS: Cefepime 1 GM in Dextrose(*) 1 GM/50 ML BAG IV SCH (07:58)
[2019-02-09] MEDS: CARIPRAZINE 3 MG PO SCH (07:58)
[2019-02-09] MEDS: Acetaminophen TAB* 325 MG PO PRN (07:58)
[2019-02-09] MEDS: Amphetamine/Dextroamph ER(NF) 10 MG CAP.ER PO SCH (07:58)
[2019-02-09] MEDS: Spironolactone TAB* 25 MG PO SCH (07:59)
[2019-02-09] MEDS ORDERED: Vancomycin Trough Check NOTE FOLLOW UP ONE (08:30)
[2019-02-09 08:40] LABS: EGFR African American 107.2 (>60); EGFR Non-African American 88.6 (>60)
[2019-02-09] MEDS ORDERED: Lorazepam PYXIS KEY ONE (08:41)
[2019-02-09 09:09] LABS: Vancomycin Trough 7.9 mcg/mL
[2019-02-09] MEDS ORDERED: ceFUROXime TAB(*) 250 MG PO ONE (09:57)
[2019-02-09] MEDS: Vancomycin(*) 1,000 MG in NS 0.9% 250 ML* 250 ML IVPB SCH (10:30)
--- NOTE | 2019-02-09 11:15 | DS ---
CC: Dr. Wellington * DISCHARGE SUMMARY: DATE OF ADMISSION: 02/07/19 DATE OF DISCHARGE: 02/09/19 PRIMARY CARE PHYSICIAN: Dr. Roxann Wellington. CONDITION ON DISCHARGE: Good. DISPOSITION ON DISCHARGE: Home. PRIMARY DIAGNOSIS: Left elbow and arm cellulitis. SECONDARY DIAGNOSIS: Bipolar disorder. MEDICATIONS AT DISCHARGE: Ceftin 500 mg twice daily for 8 additional days. The remainder of medications on discharge were unchanged include: 1. Quetiapine 12.5 mg at bedtime. 2. Lamotrigine 400 mg in the evening. 3. Spironolactone 200 mg daily. 4. Propranolol 20 mg daily as needed. 5. Lorazepam 0.4 mg twice daily as needed. 6. Adderall 30 mg in the morning. 7. Vraylar 3 mg daily. 8. Bupropion XL 450 mg in the evening. 9. Oral contraceptive pills. PERTINENT IMAGING DATA: Soft tissue ultrasound of the left arm/elbow includes, impression: Fairly extensive edematous infiltration of soft tissue without localized mass or focal fluid collection. PERTINENT LABORATORY DATA: White blood cell count on presentation was 17.6. CRP on presentation 146. HISTORY OF PRESENT ILLNESS AND HOSPITAL COURSE: This is a 48-year-old female with past medical history as outlined in the history of present illness on the day of admission including bipolar disorder who presented with worsening erythema of her left elbow that continued to worsen after starting doxycycline for at least 2 days and presented back to the hospital while on doxycycline, admitted for IV antibiotics, which included vancomycin and cefepime. With vancomycin and cefepime, her left arm cellulitis improved dramatically. On the day of discharge, there was about a 2 inch in diameter jackson surrounding her elbow of erythema, greatly reduced, previously demarcated area of erythema extending up and down her arm both proximally and distally. She had still some limited flexion to about 90 degrees, also dramatically improved since the day before. She had no fevers during the course of her hospital stay. No longer felt any systemic symptoms. She was narrowed to Ceftin on the day of discharge , continue for 8 additional days for a total of 10 days of antibiotics. She was counseled to follow up with her primary care physician within 7 days so that they may evaluate progression or resolution of cellulitis extent or change antibiotics as necessary. She acknowledged understanding. There are no complications during the course of the hospital stay. At followup, please; 1. Evaluate cellulitis for resolution. Extend antibiotic course if necessary or change coverage to include MRSA if necessary. 2. No other specific labs or vitals that need followup. Reasons to return to the hospital included, but not limited to recurrent or worsening symptoms including worsening area of erythema, pain or fevers, chest pain, shortness of breath, nausea, vomiting, lightheadedness or loss of consciousness, inability to obtain or tolerate medications were discussed with the patient and her . They acknowledged understanding. TIME SPENT: Greater than 45 minutes were spent on discharge of this patient; greater than half was spent [id number] with the patient. [id number]/[facility] #: [id number]
== END 2019-02-09 11:15 | disposition home or self-care (01) ==
LOC: ED 16:03 → MED 20:16
PROVIDERS: ADMIT Internal Medicine; ATTEND Internal Medicine
DX: L03.114 Cellulitis of left upper limb (principal); F31.9 Bipolar disorder, unspecified; Z79.899 Other long term (current) drug therapy; Z79.3 Long term (current) use of hormonal contraceptives; R50.9 Fever, unspecified
CPT/HCPCS: 36415; 80053; 80202; 82565; 83605; 84520; 85025; 86140; 87040; 96365; 96366; 96367; 96375; 96376; 99284; A9270-GY; G0378; J0692; J1644; J1885; J2543; J3370

== ENCOUNTER 2019-06-18 10:25 | Emergency (ER) | payer BC ==
--- OUTSIDE RECORDS SUMMARY | 2019-06-18 10:32 | XMS REPORT | Continuity of Care Document ---
:1970 External Reference #:[id number] Author Name STACEY Bello Address [address] [place] [address] Care Team Providers Name Role Phone Oneida Coles MD - Cardiovascular Care Team Information Crude Oil Driver Disease Nacho Francisco - Adobe Maker Care Team Information Crude Oil Driver [phone] Problems Active Problems Provider Date Bipolar II disorder Roxann Wellington M.D. Onset: 09/13/2015 Bipolar disorder Roxann Wellington M.D. Onset: 07/10/2016 Social History Type Date Description Comments Sex Unknown Tobacco Use Start: Unknown Nonsmoker ETOH Use Rare twice monthly Tobacco Use Start: Unknown End: Unknown Patient is a former smoker Allergies, Adverse Reactions, Alerts Description No Known Drug Allergies Medications Active Medications SIG Qnty Indications Ordering Provider Date 09/06 1 by mouth every 3packs Britta 02/16/2019 day, skip placebo, Pascual, [employer] 1-20mg-mcg Tablets use continuous x 3 months Sumatriptan 1 by mouth at 9tabs Britta 04/24/2018 Succinate onset of migraine, Pascual, [employer] 25mg may repeat if Tablets migraine not 100% gone in 4 hours, by mouth Valtrex 1 po bid as 60tabs 054.9 Yossi Chandler M.D. 01/03/2014 1gm Tablets directed Adderall 1 by mouth every 30tabs Britta 11/18/2013 30mg day Pascual, [employer] Tablets Propranolol HCL 1 po bid 180tabs [facility] 11/18/2013 [facility] 10mg Tablets [place] Aldactone 2 by mouth every 180tabs Britta 11/18/2013 100mg day Pascual, [employer] Tablets Lamictal 2 PO qd 60tabs [facility] 11/18/2013 200mg [facility] [place] Ativan 1 po bid 60tabs [facility] 11/18/2013 0.5mg [facility] [place] Vraylar 1 po qd Unknown 3mg Capsules Seroquel take 1/2 tablet by Unknown 25mg mouth at bedtime Tablets prn for sleep Wellbutrin XL 3 by mouth at hs Unknown 150mg Tablets ER 24HR History Medications Cefuroxime Axetil 2 po bid 8tabs Brittastan Garner, [employer] 02/16/2019 - 250mg Tablets Medications Administered in Office Medication SIG Qnty Indications Ordering Provider Date TB Intradermal Test Roxann Wellington M.D. 03/04/2017 Injection Immunizations CPT Code Status Date Vaccine Lot # [id number] Given 09/01/2018 Tdap Tetanus, W Pertussis [id number] Vital Signs Date Vital Result Comment 05/07/2019 3:29pm BP Systolic 120 mmHg BP Diastolic 90 mmHg Heart Rate 72 /min Body Temperature 97.8 F Respiratory Rate 16 /min Height 60 inches 5'0" Weight 141.00 lb BMI (Body Mass Index) 27.5 kg/m2 02/16/2019 6:59pm BP Systolic 110 mmHg BP Diastolic 72 mmHg Heart Rate 86 /min Body Temperature 98.3 F Respiratory Rate 16 /min Height 60 inches 5'0" Weight 138.00 lb BMI (Body Mass Index) 26.9 kg/m2 Results Test Date Facility Test Result H/L Range Note CBC Auto Diff 02/07/2019 [facility] [place] White Blood Count 17.6 10^3/uL High 3.5- 10.8 Red Blood Count 4.22 10^6/uL Normal 3.70-4.87 Hemoglobin 13.0 g/dL Normal 12.0-16.0 Hematocrit 39 % Normal 35-47 Mean Corpuscular Volume 93 fL Normal 80-97 Mean Corpuscular Hemoglobin 31 pg Normal 27-31 Mean Corpuscular HGB Conc 33 g/dL Normal 31-36 Red Cell Distribution Width 13 % Normal 10-15 Platelet Count 389 10^3/uL Normal 150-450 Mean Platelet Volume 7.3 fL Low 7.4-10.4 Abs Neutrophils 11.6 10^3/uL High 1.5-7.7 Abs Lymphocytes 4.5 10^3/uL Normal 1.0-4.8 Abs Monocytes 1.4 10^3/uL High 0-0.8 Abs Eosinophils 0.1 10^3/uL Normal 0-0.6 Abs Basophils 0.1 10^3/uL Normal 0-0.2 Abs Nucleated RBC 0.0 10^3/uL Granulocyte % 65.8 % Lymphocyte % 25.6 % Monocyte % 8.0 % Eosinophil % 0.3 % Basophil % 0.3 % Nucleated Red Blood Cells % 0.0 Comp Metabolic Panel 02/07/2019 [facility] [place] Sodium 134 mmol/L Low 135-145 Potassium 4.1 mmol/L Normal 3.5-5.0 Chloride 102 mmol/L Normal 101-111 Co2 Carbon Dioxide 24 mmol/L Normal 22-32 Anion Gap 8 mmol/L Normal 2-11 Glucose 125 mg/dL High 70-100 Blood Urea Nitrogen 10 mg/dL Normal 6-24 Creatinine 0.74 mg/dL Normal 0.51-0.95 BUN/Creatinine Ratio 13.5 Normal 8-20 Calcium 9.8 mg/dL Normal 8.6-10.3 Total Protein 7.3 g/dL Normal 6.4-8.9 Albumin 4.1 g/dL Normal 3.2-5.2 Globulin 3.2 g/dL Normal 2-4 Albumin/Globulin Ratio 1.3 Normal 1-3 Total Bilirubin 0.30 mg/dL Normal 0.2-1.0 Alkaline Phosphatase 69 U/L Normal 34-104 Alt 15 U/L Normal 7-52 Ast 15 U/L Normal 13-39 Egfr Non- 84.5 >60 Egfr 102.2 >60 1 Laboratory test finding 02/07/2019 [facility] [place] C Reactive Protein 146.38 mg/L High <8.01 Lactic Acid 1.3 mmol/L Normal 0.5-2.0 2 Blood Culture SEE RESULT BELOW 3 Lyme Disease PCR 02/05/2019 [facility] [place] B burgdorferi PCR, Blood Negative Negative B mayonii PCR Negative Negative B garinii/B afzelii PCR Negative Negative Lyme Disease PCR Comment See Comment 4 CBC Auto Diff 02/05/2019 [facility] [place] White Blood Count 15.5 10^3/uL High 3.5- 10.8 Red Blood Count 4.22 10^6/uL Normal 3.70-4.87 Hemoglobin 12.9 g/dL Normal 12.0-16.0 Hematocrit 38 % Normal 35-47 Mean Corpuscular Volume 91 fL Normal 80-97 Mean Corpuscular Hemoglobin 31 pg Normal 27-31 Mean Corpuscular HGB Conc 34 g/dL Normal 31-36 Red Cell Distribution Width 12 % Normal 10-15 Platelet Count 370 10^3/uL Normal 150-450 Mean Platelet Volume 7.1 fL Low 7.4-10.4 Abs Neutrophils 10.9 10^3/uL High 1.5-7.7 Abs Lymphocytes 3.3 10^3/uL Normal 1.0-4.8 Abs Monocytes 1.2 10^3/uL High 0-0.8 Abs Eosinophils 0.0 10^3/uL Normal 0-0.6 Abs Basophils 0.0 10^3/uL Normal 0-0.2 Abs Nucleated RBC 0.0 10^3/uL Granulocyte % 70.4 % Lymphocyte % 21.4 % Monocyte % 7.9 % Eosinophil % 0.1 % Basophil % 0.2 % Nucleated Red Blood Cells % 0.0 Comp Metabolic Panel 02/05/2019 [facility] [place] Sodium 134 mmol/L Low 135-145 Potassium 4.4 mmol/L Normal 3.5-5.0 Chloride 101 mmol/L Normal 101-111 Co2 Carbon Dioxide 27 mmol/L Normal 22-32 Anion Gap 6 mmol/L Normal 2-11 Glucose 107 mg/dL High 70-100 Blood Urea Nitrogen 12 mg/dL Normal 6-24 Creatinine 0.77 mg/dL Normal 0.51-0.95 BUN/Creatinine Ratio 15.6 Normal 8-20 Calcium 9.4 mg/dL Normal 8.6-10.3 Total Protein 7.0 g/dL Normal 6.4-8.9 Albumin 4.1 g/dL Normal 3.2-5.2 Globulin 2.9 g/dL Normal 2-4 Albumin/Globulin Ratio 1.4 Normal 1-3 Total Bilirubin 0.50 mg/dL Normal 0.2-1.0 Alkaline Phosphatase 73 U/L Normal 34-104 Alt 17 U/L Normal 7-52 Ast 17 U/L Normal 13-39 Egfr Non- 80.7 >60 Egfr 97.7 >60 5 Laboratory test finding 02/05/2019 [facility] [place] C Reactive Protein 30.52 mg/L High <8.01 1 Because ethnic data is not always readily available, this report includes an eGFR for both -Americans and non- Americans. The National Kidney Disease Education Program (NKDEP) does not endorse the use of the MDRD equation for patients that are not between the ages of 18 and 70, are , have extremes of body size, muscle mass, or nutritional status, or are non- or non-. According to the National Kidney Foundation, irrespective of diagnosis, the stage of the disease is based on the level of kidney function: Stage Description GFR(mL/min/1.73 m(2)) 1 Kidney damage with normal or decreased GFR 90 2 Kidney damage with mild decrease in GFR 60-89 3 Moderate decrease in GFR 30-59 4 Severe decrease in GFR 15-29 5 Kidney failure <15 (or dialysis) 2 [facility] Severe Sepsis and Septic Shock Management Bundle Measure requires all lactic acids initially measuring >2.0 mmol/L be repeated. 3 SEE RESULT BELOW Name: NAIDA PALACIOS Reza : [address]: Leonidas Wellington MD Acct: [id number] Unit: [id number] AGE: 48 Location: [address] Re02/07/19 Dis: 02/09/19 SEX: F Status: DIS Marium SPEC: [id number] SOFIA: 02/07/19-[address] [facility] [address]: Junior PAEZ REQ: [id number] RECD: 02/07/19 STATUS: LYNNETTE TIRADO DR: Roxann Wellington MD [facility] _ SOURCE: BLOOD,[facility] ORDERED: Blood Cult Procedure Result Reported Site Aerobic Culture Bottle Final 02/12/19- 1810 ML No Growth Day 5 Anaerobic Culture Bottle Final 02/12/19- 1810 ML No Growth Day 5 * ML - Main Lab . END OF REPORT DEPARTMENT OF PATHOLOGY, [address] [place] [address] Olu Vizcaino M.D. Director [facility] # [id number] 4 A negative result does not exclude infection with Borrelia burgdorferi. Serologic testing as per CDC guidelines may be indicated. ADDITIONAL INFORMATION This test was developed and its performance characteristics determined by [facility] in a manner consistent with CLIA requirements. This test has not been cleared or approved by the U.S. Food and Drug Administration. Test Performed by: [facility] - [address] [address] 5 Because ethnic data is not always readily available, this report includes an eGFR for both -Americans and non- Americans. The National Kidney Disease Education Program (NKDEP) does not endorse the use of the MDRD equation for patients that are not between the ages of 18 and 70, are , have extremes of body size, muscle mass, or nutritional status, or are non- or non-. According to the National Kidney Foundation, irrespective of diagnosis, the stage of the disease is based on the level of kidney function: Stage Description GFR(mL/min/1.73 m(2)) 1 Kidney damage with normal or decreased GFR 90 2 Kidney damage with mild decrease in GFR 60-89 3 Moderate decrease in GFR 30-59 4 Severe decrease in GFR 15-29 5 Kidney failure <15 (or dialysis) Procedures Date Code Description Status 05/07/2019 [id number] Mammogram Completed Medical Devices Description No Information Available Encounters Type Date Location Provider Dx Diagnosis Office Visit 02/16/2019 Main Office Yared Bello03.114 Cellulitis of left 7:15p [employer] upper limb Assessments Date Code Description Provider 05/07/2019 F31.9 Bipolar disorder, unspecified STACEY Bello 05/07/2019 N94.6 Dysmenorrhea, unspecified STACEY Bello 05/07/2019 Z12.31 Encounter for screening mammogram for STACEY Bello malignant neoplasm of breast 05/07/2019 Z00.00 Encounter for general adult medical STACEY Bello examination without abnormal findings 02/16/2019 L03.114 Cellulitis of left upper limb STACEY Bello Plan of Treatment 05/07/2019 - STACEY BelloF31.9 Bipolar disorder, unspecifiedNew Labs: Lamictal, Ordered: 05/07/19Comments:Stable at current, we can continue rx' sN94.6 Dysmenorrhea, unspecifiedComments:Stable with oral contraceptives, consider running packs together to avoid lsaszI35.31 Encounter for screening mammogram for malignant neoplasm of breastNew Xrays:Mammography Screening, Bilateral; 2-View Each Breast, Ordered: 05/07/19Comments:Please book your sqccptktvT99.00 Encounter for general adult medical examination without abnormal findingsNew Labs:CBC Electronic-ALL Lab [facility], Ordered: 05/07/19Comp Metabolic-ALL [facility], Ordered: 05/07/19Lipid Panel-[facility], Ordered: 05/07/19[facility] ([facility]), Ordered: 05/07/19AllComments:Medication Management Patient Understands medications he 's taking? Yes No Are there Barriers to Adherence? Yes No Has the patient been asked about herbal supplements and therapies, andOTC meds? Yes No As always, we strongly encourage a healthy diet and making physical activity a part of your every day life. If you have questions about how or where to start, please contact the office.Immunizations/Injections:Influenza Vac, Quadrivalent, Slit Virus, Im Functional Status Description No Information Available Mental Status Description No Information Available Referrals Description No Information Available
[2019-06-18 10:33] VITALS: BP 127/81
--- NOTE | 2019-06-18 10:36 | UC ---
Respiratory Complaint HPI - HPI Summary HPI Summary: 48 yo female presents with URI symptoms. She tells me that for the last 2 days she has been feeling fatigued with a hoarse voice and dry cough. Last night had a productive cough with yellow/green sputum. She has not taken anything OTC for her symptoms. She has had pneumonia in the past and this concerns her today. Denies fever, chills, sore throat, SOB, chest pain, abdominal pain, n/v. She does not smoke - History of Current Complaint Chief Complaint: UCRespiratory Stated Complaint: COUGH FATIGUE Time Seen by Provider: 06/18/19 10:35 Hx Obtained From: Patient Hx Last Menstrual Period: 2 weeks Severity Initially: Moderate Severity Currently: Moderate Pain Intensity: 3 Pain Scale Used: 0-10 Numeric - Allergies/Home Medications Allergies/Adverse Reactions: Allergies Allergy/AdvReac Type Severity Reaction Status Date / Time No Known Allergies Allergy Verified 06/18/19 10:34 Home Medications: Home Medications Norethindrone-E.estradiol-Iron [Junel Fe 24 1-20 mg-Mcg(24)] 1 tab PO DAILY WITH MEAL 06/18/19 [History Confirmed 06/18/19] PMH/Surg Hx/FS Hx/Imm Hx Psychological History: Anxiety, Depression, Bipolar Disorder - Surgical History Surgical History: Yes Surgery Procedure, Year, and Place: umbilical hernia repair, 20 YRS AGO. L foot , 2015 - Family History Known Family History: Positive: Cardiac Disease, Diabetes - Social History Lives: With Family Alcohol Use: Rare Alcohol Amount: 1-2 PER MONTH Substance Use Type: None Smoking Status (MU): Never Smoked Tobacco Amount Used/How Often: PACK A WEEK When Did the Patient Quit Smoking/Using Tobacco: 2000 - Immunization History Most Recent Influenza Vaccination: 2016 Most Recent Tetanus Shot: utd Most Recent Pneumonia Vaccination: NEVER Review of Systems All Other Systems Reviewed And Are Negative: No Constitutional: Positive: Negative Skin: Positive: Negative Eyes: Positive: Negative ENT: Positive: Nasal Discharge, Sinus Congestion, Sinus Pain/Tenderness Respiratory: Positive: Cough Cardiovascular: Positive: Negative Gastrointestinal: Positive: Negative Neurological: Positive: Negative Psychological: Positive: Negative Is Patient Immunocompromised?: No Physical Exam - Summary Physical Exam Summary: GENERAL: NAD. WDWN. No pain distress. SKIN: No rashes, sores, lesions, or open wounds. HEENT: Head: AT/NC Eyes: EOM intact. Conjunctiva clear without inflammation or discharge. Ears: Hearing grossly normal. TMs intact, no bulging, erythema, or edema. Nose: Nasal mucosa pink and moist. NTTP maxillary and frontal sinus. Throat: Posterior oropharynx without exudates, erythema, or tonsillar enlargement. Uvula midline. NECK: Supple. Nontender. No lymphadenopathy. CHEST: CTAB. No accessory muscle use. Breathing comfortably and in no distress. CV: RRR. Pulses intact. Cap refill <2seconds NEURO: Alert. PSYCH: Age appropriate behavior. Triage Information Reviewed: Yes Vital Signs: Initial Vital Signs Temp 98.2 F 06/18/19 10:31 Pulse 100 06/18/19 10:31 Resp 20 06/18/19 10:31 BP 127/81 06/18/19 10:31 Pulse Ox 98 06/18/19 10:31 Laboratory Tests 06/18/19 10:53 Influenza A (Rapid) Negative Influenza B (Rapid) Negative Vital Signs Reviewed: Yes Diagnostics - Radiology CXR Radiology Interpretation Completed By: Radiologist Summary of Radiographic Findings: IMPRESSION: No active cardiopulmonary disease is noted. Respiratory Course/Dx - Course Course Of Treatment: CXR negative. POC flu negative. Suspect viral URI. - Differential Dx/Diagnosis Provider Diagnosis: URI (upper respiratory infection) Discharge ED - Sign-Out/Discharge Documenting (check all that apply): Patient Departure All imaging exams completed and their final reports reviewed: Yes - Discharge Plan Condition: Stable Disposition: HOME Patient Education Materials: Upper Respiratory Infection (ED) Referrals: Roxann Wellington MD [Primary Care Provider] - Additional Instructions: If you develop a fever, shortness of breath, chest pain, new or worsening symptoms - please call your PCP or go to the ED immediately. Your symptoms are likely from a viral infection. Viral infections do not respond to antibiotics and are limited to the treatment of symptoms. Viral infections typically run their course in 7-10 days. Drink plenty of fluids to avoid dehydration especially if you are running any fever. Use salt water gargles several times a day. Take over the counter acetaminophen (Tylenol) or ibuprofen (Advil, Motrin) according to directions as needed for pain or fever. You may also use Chloraseptic spray or Cepacol lonzenges according to directions which contain a numbing medication and can provide some temporary relief from your sore throat. Return here or follow up with your primary care provider in 7 days if symptoms persist. - Billing Disposition and Condition Condition: STABLE Disposition: Home
[2019-06-18 11:06] LABS: Influenza A Molecular NEGATIVE (Negative); Influenza B Molecular NEGATIVE (Negative)
== END 2019-06-18 11:30 | disposition home or self-care (01) ==
LOC: UCEAST 10:25
DX: J06.9 Acute upper respiratory infection, unspecified (principal); R53.83 Other fatigue; F31.9 Bipolar disorder, unspecified
CPT/HCPCS: 71046; 99211; G0463

== ENCOUNTER 2019-08-28 10:42 | Emergency (ER) | payer BC ==
[2019-08-28 10:51] VITALS: BP 135/83
--- NOTE | 2019-08-28 11:01 | UC ---
Skin Complaint HPI - HPI Summary HPI Summary: facial rash from new cream that she started 5 day sago. after 3 day suse her face broke out in itchy burning rash. she has had similar reaction in past and needed PO prednisone to resolve. has already tried benadryl and a allergy cream w/o relief - History of Current Complaint Chief Complaint: UCRash Time Seen by Provider: 08/28/19 10:53 Stated Complaint: RASH Hx Obtained From: Patient Hx Last Menstrual Period: 2 weeks Onset/Duration: Sudden Onset Pain Intensity: 0 Location: Face Character: Pruritus, Pain, Redness Aggravating Factor(s): Touch Alleviating Factor(s): Nothing Associated Signs & Symptoms: Negative: Fever, Chills, Drainage - Allergy/Home Medications Allergies/Adverse Reactions: Allergies Allergy/AdvReac Type Severity Reaction Status Date / Time No Known Allergies Allergy Verified 08/28/19 10:51 Home Medications: Home Medications Cariprazine HCl [Vraylar] 3 mg PO DAILY WITH MEAL 08/28/19 [History Confirmed ] PMH/Surg Hx/FS Hx/Imm Hx Previously Healthy: Yes Psychological History: Anxiety, Depression, Bipolar Disorder - Surgical History Surgical History: Yes Surgery Procedure, Year, and Place: umbilical hernia repair, 20 YRS AGO. L foot , 2015 - Family History Known Family History: Positive: Cardiac Disease, Diabetes - Social History Occupation: Employed Full-time Lives: With Family Alcohol Use: Occasionally Alcohol Amount: 1-2 PER MONTH Substance Use Type: None Smoking Status (MU): Former Smoker Amount Used/How Often: PACK A WEEK When Did the Patient Quit Smoking/Using Tobacco: 2000 - Immunization History Most Recent Influenza Vaccination: 2016 Most Recent Tetanus Shot: utd Most Recent Pneumonia Vaccination: NEVER Review of Systems All Other Systems Reviewed And Are Negative: Yes Constitutional: Positive: Negative. Negative: Fever Skin: Positive: Rash Respiratory: Positive: Negative Cardiovascular: Positive: Negative Musculoskeletal: Positive: Negative Neurological: Positive: Negative. Negative: Headache Psychological: Positive: Negative Is Patient Immunocompromised?: No Physical Exam Triage Information Reviewed: Yes Appearance: Well-Appearing, No Pain Distress, Well-Nourished Vital Signs: Initial Vital Signs Temp 99.1 F 08/28/19 10:46 Pulse 90 08/28/19 10:46 Resp 18 08/28/19 10:46 BP 135/83 08/28/19 10:46 Pulse Ox 99 08/28/19 10:46 Vital Signs Reviewed: Yes Eyes: Positive: Conjunctiva Clear Neck exam: Normal Respiratory Exam: Normal Respiratory: Positive: Lungs clear Cardiovascular Exam: Normal Cardiovascular: Positive: RRR Neurological Exam: Normal Neurological: Positive: Alert Psychological Exam: Normal Skin: Positive: Rashes - erythemic macular/papular rash face and bilateral lateral anterior neck in pattern of cream application Course/Dx - Differential Diagnoses - Skin Complaint Differential Diagnoses: Allergic Reaction, Cellulitis, Contact Dermatitis - Diagnoses Provider Diagnosis: Contact dermatitis Discharge ED - Sign-Out/Discharge Documenting (check all that apply): Patient Departure All imaging exams completed and their final reports reviewed: No Studies - Discharge Plan Condition: Good Disposition: HOME Prescriptions: methylPREDNISolone [Medrol Dosepak 4 MG*] 0 mg PO .SEE KATRINA INSTRUCTION #1 tab Patient Education Materials: Contact Dermatitis (DC) Referrals: Roxann Wellington MD [Primary Care Provider] - 2 Days (if no better) Additional Instructions: Do not use cream that caused rash in future start prednisone and take as directed - Billing Disposition and Condition Condition: GOOD Disposition: Home
== END 2019-08-28 11:15 | disposition home or self-care (01) ==
LOC: UCEAST 10:42
DX: L25.0 Unspecified contact dermatitis due to cosmetics (principal); F31.9 Bipolar disorder, unspecified; Z79.899 Other long term (current) drug therapy; Z87.891 Personal history of nicotine dependence
CPT/HCPCS: 99211; G0463